=== PATIENT | male | born 1995 | race Caucasian/White ===

== ENCOUNTER 2018-03-06 16:20 | Emergency (ER) | payer OTHER ==
[2018-03-06 18:34] VITALS: BP 127/74
--- NOTE | 2018-03-06 19:02 | EDPHY ---
H & P Stated Complaint: MITCHEL testical pain Time Seen by Provider: 03/06/18 18:34 HPI/ROS: Chief complaint: testicular pain HPI: 22 yo male presents with a 3 day h/o testicular pain. Onset of bilateral achiness in the testicles 2 days ago. The achiness increases with palpation and with position change. When sleeping, pt needs to adjust positioning of scotum for comfort. Seen at an outside facility yesterday. Testicular sono revealed an epididymal head cyst, o/w unremarkable. Placed on ibuprofen with some relief. However, pain is persistent and now has pain radiating to the left abdomen. No other GI sx; no vomiting, diarrhea, and no fever. Not currently sexually active and no urethral discharge. No UTI sx. No prior similar sx. - Personal History Current Tetanus/Diphtheria Vaccine: Yes Current Tetanus Diphtheria and Acellular Pertussis (TDAP): Yes - Medical/Surgical History Hx Asthma: Yes Hx Chronic Respiratory Disease: No Hx Diabetes: No Hx Cardiac Disease: No Hx Renal Disease: No Hx Cirrhosis: No Hx Alcoholism: No Hx HIV/AIDS: No Hx Splenectomy or Spleen Trauma: No Other PMH: asthma, - Social History Smoking Status: Never smoked Alcohol Use: Sober Drug Use: None - Physical Exam Exam: General Appearance: Alert, pleasant Eyes: Pupils equal and round, no conjunctival pallor ENT, Mouth: Mucous membranes moist Neck: Normal inspection Respiratory: normal RR Cardiovascular: Regular rate and rhythm Gastrointestinal: Abdomen is soft, mild LLQ tenderness : normal inspection, posterior testicular tenderness, in the area of the epididymis bilaterally Neurological: A&O, nonfocal, normal gait Skin: Warm and dry Extremities: normal inspection Psychiatric: Mood and affect normal Constitutional: Initial Vital Signs Temperature (C) 36.6 C 03/06/18 16:25 Heart Rate 70 03/06/18 16:25 Respiratory Rate 16 03/06/18 16:25 Blood Pressure 134/80 H 03/06/18 16:25 O2 Sat (%) 97 03/06/18 16:25 O2 Delivery Mode Room Air Allergies/Adverse Reactions: No Known Allergies Allergy (Unverified 03/06/18 16:25) Home Medications: Medication Instructions Recorded Ciprofloxacin [Cipro] 500 mg PO BID #20 tab 03/06/18 Ibuprofen 03/06/18 Medical Decision Making ED Course/Re-evaluation: This pt presents with a 3 day h/o bilateral testicular achiness and unremarkable sono yesterday. Physical exam c/w bilateral epididymitis. LLQ tenderness noted, I do not suspect kidney stone, given normal UA and atypical pain for renal colic. d/w pt, will give trial of abx for epididymitis. Warning signs discussed. If not better in 48 hrs, return to ED or f/u with urology. Differential Diagnosis: includes though not limited to testicular torsion, UTI, urethritis, kidney stone - Data Points Medications Given: Discontinued Medications Ciprofloxacin (Cipro) 500 mg PO EDNOW ONE PRN Reason: Protocol Stop: 03/06/18 19:09 Last Admin: 03/06/18 19:10 Dose: 500 mg Departure - Departure Disposition: Home, Routine, Self-Care Clinical Impression: Epididymitis, bilateral Condition: Good Instructions: Epididymitis (ED) Additional Instructions: Ibuprofen 600 mg 3 times daily while the pain persists. Return for worsening symptoms or any concerns. Referrals: Derek Buckley MD [Medical Doctor] - As per Instructions (Call to make an appointment.) Prescriptions: Ciprofloxacin [Cipro] 500 mg PO BID #20 tab
[2018-03-06] MEDS ORDERED: CIPROFLOXACIN 500 MG TAB PO ONE (19:08)
== END 2018-03-06 19:16 | disposition home or self-care (01) ==
DX: N45.1 Epididymitis (principal)